=== PATIENT | female | born 1995 | race Two or more races ===

== ENCOUNTER 2024-02-14 08:22 | Emergency (ER) | payer MEDICAID ==
[~2024-02-14] VITALS: Ht 154.9 cm; Wt 61.4 kg
[2024-02-14 08:31] VITALS: TEMP 98
[2024-02-14 08:39] LABS: COVID AG,FIA SOURCE NASAL SWAB
[2024-02-14 09:26] LABS: INFLUENZA TYPE A NEGATIVE FOR TYPE A (NEGATIVE); INFLUENZA TYPE B NEGATIVE FOR TYPE B (NEGATIVE); SARS-COV2 (COVID) ANTIGEN,FIA Negative (Negative)
[2024-02-14 09:50] LABS: APPEARANCE,URINE CLEAR (CLEAR); BILIRUBIN,URINE NEGATIVE (NEGATIVE); COLOR,URINE LIGHT YELLOW (YELLOW); GLUCOSE, URINE (UA) NEGATIVE (NEGATIVE); KETONES,URINE NEGATIVE (NEGATIVE); LEUKOCYTE ESTERASE ,URINE NEGATIVE (NEGATIVE); NITRATE,URINE POSITIVE (NEGATIVE); OCCULT BLOOD,URINE NEGATIVE (NEGATIVE); PROTEIN,URINE NEGATIVE (NEGATIVE); SPECIFIC GRAVITIY, URINE 1.008 (1.003-1.030); UROBILINOGEN,URINE <=1.0 mg/dL (<=1.0)
[2024-02-14 09:56] LABS: BACTERIA,URINE Many /HPF (None Seen); RBC,URINE None Seen /HPF (0-2); WBC,URINE 0-2 /HPF (0-5)
[2024-02-14] MEDS ORDERED: CEPH-558 PO (10:08)
[2024-02-14] MEDS: CEPHALEXIN MONOHYDRATE 500 MG CAPSULE PO ONE (10:15)
[2024-02-14 10:27] VITALS: BP 122/73; PULSE 75; RESP 14; O2SAT 98
== END 2024-02-14 10:27 | disposition home or self-care (01) ==
LOC: EMS 08:39
DX: O99.511 Diseases of the respiratory system complicating pregnancy, first trimester (principal); J06.9 Acute upper respiratory infection, unspecified; B97.89 Other viral agents as the cause of diseases classified elsewhere; R05.9 Cough, unspecified; R82.71 Bacteriuria; O10.911 Unspecified pre-existing hypertension complicating pregnancy, first trimester; E78.5 Hyperlipidemia, unspecified; Z3A.11 11 weeks gestation of pregnancy; Z20.822 Contact with and (suspected) exposure to COVID-19
CPT/HCPCS: 81001; 87077; 87086; 87186; 87804; 99283